=== PATIENT | male | born 1960 | race Caucasian/White ===

== ENCOUNTER → 2017-02-06 | Outpatient (CLI) | payer BC ==
--- NOTE | 2017-02-06 12:08 | EKG ---
[address] [address] Measurements Intervals [place] Rate: 60 P: 59 TN: 187 QRS: 73 QRSD: 96 T: 55 QT: 410 QTc: 411 Interpretive Statements SINUS RHYTHM No previous ECG available for comparison Electronically Signed On 02-07-17 08:08:58 MDT by Yamil Winkler MD [email or web address]
--- NOTE | 2017-02-06 12:33 | DI ---
PA /LATERAL CHEST X-RAY, 02/06/2017 11:44 AM : Clinical History: Dyspnea. Previous Exam: 10/06/2015. There is no acute soft tissue or bony abnormality. Heart size is normal. Lungs are clear. Mediastinal structures are normal. There are no pulmonary nodules. Reading: Normal chest x-ray. There has been no interval change.
== END ==
LOC: MOB RAD 11:57
PROVIDERS: ATTEND Physician Assistant Medical
DX: R06.00 Dyspnea, unspecified (principal); R42 Dizziness and giddiness; R07.2 Precordial pain; Z82.49 Family history of ischemic heart disease and other diseases of the circulatory system
CPT/HCPCS: 71020; 93005; 93010